=== PATIENT | female | born 1980 | race Caucasian/White ===

== ENCOUNTER 2017-12-31 17:30 | Emergency (ER) | payer SELFPAY ==
[2017-12-31] MEDS ORDERED: Ondansetron ODT 4 MG TAB ONE (18:09)
[2017-12-31] MEDS ORDERED: predniSONE 20 MG TAB ONE (18:09)
--- NOTE | 2017-12-31 19:34 | RAD ---
PA AND LATERAL VIEWS CHEST: HISTORY: Cough. COMPARISON: 12/30/2015 FINDINGS: The cardiomediastinum is normal. The lungs are well expanded and clear. The bony thorax is normal. IMPRESSION: Normal examination. POS: [facility]
== END 2017-12-31 19:40 | disposition home or self-care (01) ==
LOC: MADERS 17:30
DX: J45.901 Unspecified asthma with (acute) exacerbation (principal); F41.9 Anxiety disorder, unspecified; K21.9 Gastro-esophageal reflux disease without esophagitis; E66.9 Obesity, unspecified; Z79.899 Other long term (current) drug therapy
CPT/HCPCS: 71046; J7506; J7620; Q0162

== ENCOUNTER 2018-02-07 11:49 | Emergency (ER) | payer SELFPAY ==
[2018-02-07] MEDS ORDERED: Sterile Water 10 ML ONE (12:37)
[2018-02-07] MEDS ORDERED: methylPREDNISolone Sod Succ/PF 125 MG/2 ML VIAL ONE (12:37)
[2018-02-07] MEDS ORDERED: Amoxicillin/Potassium Clav 875 MG TAB ONE (12:37)
[2018-02-07] MEDS ORDERED: Ibuprofen 800 MG TAB ONE (12:37)
[2018-02-07] MEDS ORDERED: Ondansetron ODT 4 MG TAB ONE (12:37)
== END 2018-02-07 13:15 | disposition home or self-care (01) ==
LOC: MADERS 11:49
DX: J02.9 Acute pharyngitis, unspecified (principal); E66.9 Obesity, unspecified; J45.909 Unspecified asthma, uncomplicated; G43.909 Migraine, unspecified, not intractable, without status migrainosus; F41.9 Anxiety disorder, unspecified; Z79.899 Other long term (current) drug therapy
CPT/HCPCS: 87804; 96372; A4216; J2930; Q0162

== ENCOUNTER 2018-03-18 03:12 | Emergency (ER) | payer SELFPAY ==
[2018-03-18] MEDS ORDERED: Dexamethasone 4 MG TAB ONE (03:36)
[2018-03-18] MEDS ORDERED: Benzonatate 100 MG CAP ONE (03:36)
[2018-03-18] MEDS ORDERED: HYDROcodone/Acetaminophen 5/325 mg Tablet ONE (03:36)
--- NOTE | 2018-03-21 09:00 | PQF ---
[facility] POST DISCHARGE CLINICAL DOCUMENTATION IMPROVEMENT CLARIFICATION FORM l Todays Date: 03/21/18 l Patients Name Tiara Kwok l l Admit Date 03/18/18 l Disch Date 03/18/18 Dog Hair Clipper Name Lisa Sheryl. Huntley Email:[email or web address]: To be completed by Dog Hair Clipper: Present Clinical Indicators - Signs / Symptoms Results and Location in Medical Record [ ] Documentation of: [ ] [ ] Documentation of: [ ] [ ] Documentation of: [ ] [ ] Documentation of: [ ] [ ] Risks [ ] [ ] [ ] Treatment Bronchitis Query for Specificity of Acute or Chronic of Bronchitis. [ ] [ ] To be completed by Physician: MD PASCUAL, DAVIN The documentation in this patients record requires clarification to ensure coding compliance and accuracy. Check the appropriate box and include in your discharge summary. [ ] [ ] [ ] [ ] Please check this box if this does not apply to this patient [ ] Unable to determine [ ] Other diagnosis: Review the following information and exercise your independent professional judgment in responding to the clarification. Based upon the clinical findings, risk factors, and treatment, please clarify if you are treating one of the above probable or suspected diagnoses. Physician Signature: Date Time ANTHONYD
== END 2018-03-18 04:00 | disposition home or self-care (01) ==
LOC: MADERS 03:12
DX: J40 Bronchitis, not specified as acute or chronic (principal); E66.9 Obesity, unspecified; J45.909 Unspecified asthma, uncomplicated; K21.9 Gastro-esophageal reflux disease without esophagitis; G43.909 Migraine, unspecified, not intractable, without status migrainosus; F41.9 Anxiety disorder, unspecified; F32.9 Major depressive disorder, single episode, unspecified
CPT/HCPCS: 87804; 99283; J8540

== ENCOUNTER 2019-03-03 17:43 | Emergency (ER) | payer OTHER, SELFPAY ==
[2019-03-03] MEDS ORDERED: Acetaminophen 500 MG TAB ONE (18:13)
== END 2019-03-03 19:00 | disposition home or self-care (01) ==
LOC: MADERS 17:43
DX: B34.9 Viral infection, unspecified (principal); E66.9 Obesity, unspecified; J45.909 Unspecified asthma, uncomplicated; K21.9 Gastro-esophageal reflux disease without esophagitis; G43.909 Migraine, unspecified, not intractable, without status migrainosus; F41.9 Anxiety disorder, unspecified; F32.9 Major depressive disorder, single episode, unspecified; Z79.51 Long term (current) use of inhaled steroids; Z79.899 Other long term (current) drug therapy
CPT/HCPCS: 87081; 87430; 87804; 99283

== ENCOUNTER 2019-06-01 03:23 | Emergency (ER) | payer OTHER ==
[2019-06-01] MEDS ORDERED: Azithromycin 250 MG TAB ONE (04:11)
[2019-06-01] MEDS ORDERED: Phenergan/Codeine 10-6.25mg/5ml UDCUP ONE (04:11)
--- NOTE | 2019-06-01 07:58 | RAD ---
RADIOGRAPH CHEST 2 VIEWS: DATE: 06/01/2019 HISTORY: 38-year-old female with cough FINDINGS: There is no airspace density, pulmonary edema, pleural effusion, pneumothorax, or cardiomegaly. IMPRESSION: No acute cardiopulmonary findings.
== END 2019-06-01 04:22 | disposition home or self-care (01) ==
LOC: MADERS 03:23
DX: J18.9 Pneumonia, unspecified organism (principal); R11.10 Vomiting, unspecified; J45.909 Unspecified asthma, uncomplicated; K21.9 Gastro-esophageal reflux disease without esophagitis; E55.9 Vitamin D deficiency, unspecified; G43.909 Migraine, unspecified, not intractable, without status migrainosus; E66.9 Obesity, unspecified; F41.9 Anxiety disorder, unspecified; F32.9 Major depressive disorder, single episode, unspecified; Z79.899 Other long term (current) drug therapy
CPT/HCPCS: 71046